=== PATIENT | male | born 1975 | race Caucasian/White ===

== ENCOUNTER 2022-01-07 10:49 | Emergency (ER) | payer SELFPAY ==
[~2022-01-07] VITALS: Ht 177.8 cm; Wt 72.7 kg
[2022-01-07 11:15] VITALS: BP 142/92
[2022-01-07] MEDS ORDERED: LIDOCAINE 1% 10 ML VIAL SQ ONE (12:15)
[2022-01-07] MEDS ORDERED: PERTUSS(ACELL),DIPH,TET VAC/PF 0.5 ML SYRINGE IM. ONE (12:15)
[2022-01-07] MEDS ORDERED: BACITRACIN 0.9 GM PACKET OINTMENT TP ONE (12:15)
[2022-01-07] MEDS ORDERED: BACI28OI28 TP (12:35)
== END 2022-01-07 13:10 | disposition home or self-care (01) ==
LOC: EMS 10:54
DX: S51.812A Laceration without foreign body of left forearm, initial encounter (principal); W45.8XXA Other foreign body or object entering through skin, initial encounter; Y93.89 Activity, other specified; Y92.89 Other specified places as the place of occurrence of the external cause; Y99.8 Other external cause status
CPT/HCPCS: 12002; 90471; 90715; 99283; J3490